=== PATIENT | male | born 1975 | race Hispanic/Latino ===

== ENCOUNTER 2022-10-10 14:57 | Inpatient (IN) | payer OTHER ==
[~2022-10-10] VITALS: Ht 165.1 cm; Wt 78.6 kg
[2022-10-10 17:02] LABS: BASOPHILS # (AUTO) 0.02 K/uL (0.00-0.20); BASOPHILS % (AUTO) 0.3 % (0.0-5.0); EOSINOPHILS # (AUTO) 0.04 K/uL (0.00-0.70); EOSINOPHILS % (AUTO) 0.6 % (0.0-8.0); IMMATURE GRANULOCYTE ABSOLUTE 0.03 K/uL (0-1); LYMPHOCYTES # (AUTO) 2.9 K/uL (1.0-4.8); MEAN CORPUSCULAR HEMOGLOBIN 29.9 pg (27.0-33.0); MEAN CORPUSCULAR HGB CONC 30.5 g/dL (32.0-36.0); MEAN CORPUSCULAR VOLUME 97.9 fL (79-99); MONOCYTES # (AUTO) 0.2 K/uL (0.1-1.0); MONOCYTES % (AUTO) 2.7 % (3.0-13.0); NEUTROPHILS # (AUTO) 3.2 K/uL (1.8-7.7); NEUTROPHILS % (AUTO) 49.9 % (40.0-77.0); NUCLEATED RED BLOOD CELLS 0.3 % (0.0-0.19); PLATELET COUNT (AUTO) 307 K/uL (130-400); RED BLOOD CELL COUNT(AUTO) 1.94 MIL/uL (4.50-6.20); RED CELL DISTRIBUTION WIDTH 19.1 % (11.0-15.5); WHITE BLOOD COUNT (AUTO) 6.4 K/uL (4.8-10.8)
[2022-10-10 17:21] LABS: % IRON SATURATION 30.7 % (30-44)
[2022-10-10 17:41] LABS: ALBUMIN 1.7 g/dL (3.5-5.0); BILIRUBIN,TOTAL 0.2 mg/dL (0.2-1.0); CREATININE 1.3 mg/dL (0.5-1.5); POTASSIUM 3.6 mmol/L (3.5-5.1); TOTAL PROTEIN, SERUM 17.3 g/dL (6.0-8.3)
[2022-10-10] MEDS ORDERED: ONDANSETRON 4MG INJ IV PRN (19:30)
[2022-10-10] MEDS ORDERED: 0.9%NACL 1000ML 1,000 ML IV SCH (19:30)
[2022-10-10] MEDS ORDERED: PANTOPRAZOLE 40 MG/VIAL IVP SCH (21:00)
[2022-10-10 23:00] VITALS: BP 130/83; PULSE 83; RESP 22
[2022-10-10 23:05] VITALS: O2SAT 99
[2022-10-11] VITALS (8 sets, daily range): BP systolic 110–141; BP diastolic 72–83; PULSE 66–76; RESP 18–23; O2SAT 98–99
[2022-10-11 01:14] LABS: HEMATOCRIT 20.8 % (42-54)
[2022-10-11] MEDS ORDERED: ACET-2247 PO (04:40)
[2022-10-11 05:19] LABS: HEMATOCRIT 22.8 % (42-54); MEAN CORPUSCULAR HEMOGLOBIN 29.6 pg (27.0-33.0); MEAN CORPUSCULAR VOLUME 92.3 fL (79-99); RED BLOOD CELL COUNT(AUTO) 2.47 MIL/uL (4.50-6.20); WHITE BLOOD COUNT (AUTO) 4.4 K/uL (4.8-10.8)
[2022-10-11 05:29] LABS: INR 1.15 (0.85-1.15); PROTHROMBIN TIME 13.2 SEC (9.6-11.6)
[2022-10-11 05:31] LABS: PARTIAL THROMBOPLASTIN TIME 24.8 SEC (26.3-35.5)
[2022-10-11 05:52] LABS: ALBUMIN 1.4 g/dL (3.5-5.0); BILIRUBIN,DIRECT 0.2 mg/dL (0.0-0.3); BILIRUBIN,TOTAL 0.6 mg/dL (0.2-1.0); CREATININE 1.2 mg/dL (0.5-1.5); POTASSIUM 3.6 mmol/L (3.5-5.1); TOTAL PROTEIN, SERUM 14.7 g/dL (6.0-8.3)
[2022-10-11] MEDS ORDERED: COMPOUND IV REFRIGERATED 1 EACH IVSOLN MISC PRN (08:30)
[2022-10-11] MEDS ORDERED: LORAZEPAM 1 MG TABLET PO PRN (08:30)
[2022-10-11] MEDS: TAMSULOSIN HCL 0.4 MG CAP.ER.24H PO SCH (09:05)
[2022-10-11] MEDS: M.V.I. 10 ML, FOLIC ACID 1 MG, THIAMINE HCL 100 MG in 0.9%NACL 1000ML IV SCH (09:17)
[2022-10-11] MEDS: PANTOPRAZOLE 40MG INJ 80 MG in 0.9%NACL 100ML 100 ML IVP SCH ×2 (09:18→19:30)
[2022-10-11 12:18] LABS: HEMATOCRIT 22.9 % (42-54)
[2022-10-11] MEDS ORDERED: LACTULOSE 20 GM/30 ML UDCUP PO ONE ×2 (15:30→17:30)
[2022-10-11] MEDS ORDERED: BISACODYL 5 MG TABLET.DR PO SCH (18:00)
[2022-10-11] MEDS ORDERED: PEG 3350/NA SULF,BICARB,CL/KCL 4000 ML SOLN PO ONE (18:15)
[2022-10-11 18:34] LABS: HEMATOCRIT 25.6 % (42-54)
[2022-10-12] VITALS (28 sets, daily range): BP systolic 103–139; BP diastolic 64–90; PULSE 63–97; RESP 14–22; O2SAT 96–98
[2022-10-12 00:53] LABS: HEMATOCRIT 23.5 % (42-54)
[2022-10-12] MEDS ORDERED: BISACODYL 5 MG TABLET.DR PO SCH (02:00)
[2022-10-12 05:23] LABS: EOSINOPHILS # (AUTO) 0.04 K/uL (0.00-0.70); EOSINOPHILS % (AUTO) 0.9 % (0.0-8.0); HEMATOCRIT 22.7 % (42-54); IMMATURE GRANULOCYTE ABSOLUTE 0.01 K/uL (0-1); LYMPHOCYTES # (AUTO) 2.1 K/uL (1.0-4.8); LYMPHOCYTES % (AUTO) 47.2 % (21.0-51.0); MEAN CORPUSCULAR HEMOGLOBIN 30.1 pg (27.0-33.0); MEAN CORPUSCULAR HGB CONC 31.7 g/dL (32.0-36.0); MONOCYTES # (AUTO) 0.2 K/uL (0.1-1.0); MONOCYTES % (AUTO) 4.1 % (3.0-13.0); NEUTROPHILS # (AUTO) 2.1 K/uL (1.8-7.7); NEUTROPHILS % (AUTO) 47.6 % (40.0-77.0); PLATELET COUNT (AUTO) 224 K/uL (130-400); RED BLOOD CELL COUNT(AUTO) 2.39 MIL/uL (4.50-6.20); RED CELL DISTRIBUTION WIDTH 18.1 % (11.0-15.5); WHITE BLOOD COUNT (AUTO) 4.4 K/uL (4.8-10.8)
[2022-10-12 05:58] LABS: ALBUMIN 1.4 g/dL (3.5-5.0); BILIRUBIN,TOTAL 0.4 mg/dL (0.2-1.0); CREATININE 1.2 mg/dL (0.5-1.5); MAGNESIUM 1.6 mg/dL (1.80-2.40); POTASSIUM 3.4 mmol/L (3.5-5.1); TOTAL PROTEIN, SERUM 14.3 g/dL (6.0-8.3)
[2022-10-12] MEDS: PANTOPRAZOLE 40MG INJ 80 MG in 0.9%NACL 100ML 100 ML IVP SCH (06:02)
[2022-10-12] MEDS ORDERED: POTASSIUM CHLORIDE 20MEQ/100ML 100 ML IV PRN (06:30)
[2022-10-12] MEDS ORDERED: MAGNESIUM 2GM PREMIX 50ML 50 ML IV PRN (06:30)
[2022-10-12] MEDS: TAMSULOSIN HCL 0.4 MG CAP.ER.24H PO SCH (09:00)
[2022-10-12] MEDS: M.V.I. 10 ML, FOLIC ACID 1 MG, THIAMINE HCL 100 MG in 0.9%NACL 1000ML IV SCH (10:06)
[2022-10-12] MEDS ORDERED: PROPOFOL 10 MG/ML 20ML VIAL IV ONE ×2 (11:42→12:06)
[2022-10-12] MEDS ORDERED: SIMETHICONE 40 MG/0.6 ML ML ONE (12:15)
[2022-10-12 14:17] LABS: HEMATOCRIT 23.6 % (42-54)
[2022-10-12 15:50] LABS: THYROID STIMULATING HORMONE 1.79 uIU/mL (0.36-3.74)
[2022-10-13 08:00] VITALS: BP 105/79; PULSE 64; RESP 17
[2022-10-13] MEDS: M.V.I. 10 ML, FOLIC ACID 1 MG, THIAMINE HCL 100 MG in 0.9%NACL 1000ML IV SCH (10:00)
[2022-10-13 10:29] LABS: ALBUMIN 1.4 g/dL (3.5-5.0); BILIRUBIN,TOTAL 0.4 mg/dL (0.2-1.0); CREATININE 1.2 mg/dL (0.5-1.5); MAGNESIUM 1.8 mg/dL (1.80-2.40); POTASSIUM 3.3 mmol/L (3.5-5.1); TOTAL PROTEIN, SERUM 13.7 g/dL (6.0-8.3)
[2022-10-13] MEDS: PANTOPRAZOLE 40MG INJ 80 MG in 0.9%NACL 100ML 100 ML IVP SCH ×3 (10:47→12:00)
[2022-10-13] MEDS: TAMSULOSIN HCL 0.4 MG CAP.ER.24H PO SCH (10:48)
[2022-10-13] MEDS ORDERED: PANT40TA55 PO (11:04)
[2022-10-13] MEDS ORDERED: TAMS-1 PO (11:04)
[2022-10-13] MEDS ORDERED: HYDR25SU38 RC (11:04)
[2022-10-13 12:00] VITALS: BP 126/77; PULSE 82; RESP 17
[2022-10-13 14:37] LABS: BASOPHILS # (AUTO) 0.01 K/uL (0.00-0.20); BASOPHILS % (AUTO) 0.2 % (0.0-5.0); EOSINOPHILS # (AUTO) 0.04 K/uL (0.00-0.70); EOSINOPHILS % (AUTO) 0.9 % (0.0-8.0); HEMATOCRIT 21.9 % (42-54); IMMATURE GRANULOCYTE ABSOLUTE 0.01 K/uL (0-1); LYMPHOCYTES # (AUTO) 1.8 K/uL (1.0-4.8); LYMPHOCYTES % (AUTO) 42.6 % (21.0-51.0); MEAN CORPUSCULAR HEMOGLOBIN 30.7 pg (27.0-33.0); MEAN CORPUSCULAR VOLUME 96.1 fL (79-99); MONOCYTES # (AUTO) 0.2 K/uL (0.1-1.0); MONOCYTES % (AUTO) 4.2 % (3.0-13.0); NEUTROPHILS # (AUTO) 2.2 K/uL (1.8-7.7); NEUTROPHILS % (AUTO) 51.9 % (40.0-77.0); PLATELET COUNT (AUTO) 193 K/uL (130-400); RED BLOOD CELL COUNT(AUTO) 2.28 MIL/uL (4.50-6.20); RED CELL DISTRIBUTION WIDTH 17.7 % (11.0-15.5); WHITE BLOOD COUNT (AUTO) 4.3 K/uL (4.8-10.8)
[2022-10-14 16:11] LABS: FREE KAPPA LIGHT CHAINS,S 921.4 mg/L (3.3-19.4)
== END 2022-10-13 13:20 | disposition home or self-care (01) | DRG 377 ==
LOC: EDH 14:57 → EDHIP 19:05 → 3BH 22:45
PROVIDERS: ADMIT Hospitalist; ATTEND Hospitalist
PROC: 30233N1 Transfusion of Nonautologous Red Blood Cells into Peripheral Vein, Percutaneous Approach (ICD-10-PCS; 2022-10-10)
PROC: 0DB98ZX Excision of Duodenum, Via Natural or Artificial Opening Endoscopic, Diagnostic (ICD-10-PCS; principal; 2022-10-12)
PROC: 0DB68ZX Excision of Stomach, Via Natural or Artificial Opening Endoscopic, Diagnostic (ICD-10-PCS; 2022-10-12)
PROC: 0DB58ZX Excision of Esophagus, Via Natural or Artificial Opening Endoscopic, Diagnostic (ICD-10-PCS; 2022-10-12)
PROC: 0DJD8ZZ Inspection of Lower Intestinal Tract, Via Natural or Artificial Opening Endoscopic (ICD-10-PCS; 2022-10-12)
DX: K29.71 Gastritis, unspecified, with bleeding (principal); E43 Unspecified severe protein-calorie malnutrition; D62 Acute posthemorrhagic anemia; N13.2 Hydronephrosis with renal and ureteral calculous obstruction; C18.9 Malignant neoplasm of colon, unspecified; K63.3 Ulcer of intestine; K76.0 Fatty (change of) liver, not elsewhere classified; F17.210 Nicotine dependence, cigarettes, uncomplicated; G89.29 Other chronic pain; I10 Essential (primary) hypertension; K64.8 Other hemorrhoids; K21.00 Gastro-esophageal reflux disease with esophagitis, without bleeding; K64.9 Unspecified hemorrhoids; K59.00 Constipation, unspecified; E83.52 Hypercalcemia; Z82.49 Family history of ischemic heart disease and other diseases of the circulatory system; Z87.442 Personal history of urinary calculi
CPT/HCPCS: 36415; 36430; 43239; 45378; 74176; 76700; 80048; 80053; 80076; 82270; 82607; 82728; 82948; 83010; 83540; 83550; 83615; 83735; 83883; 84443; 85007; 85014; 85018; 85025; 85027; 85610; 85730; 86038; 86334; 86701; 86850; 86900; 86901; 86923; 87390; A4606; C9113; G0378; J2704; J3411; J3475; J3490; J7030; P9016; A4215; A4216; A4222; A4223; A4620; A4657; A7002

== ENCOUNTER 2023-01-05 20:10 | Observation (INO) | payer OTHER ==
[~2023-01-05] VITALS: Ht 165.1 cm; Wt 77.9 kg
[~2023-01-05 20:10] MED LIST: ACET-2247 PO; HYDR25SU38 RC; PANT40TA55 PO; TAMS-1 PO
[2023-01-05 21:00] VITALS: BP 153/87; PULSE 80; RESP 18
[2023-01-05] MEDS ORDERED: ACETAMINOPHEN 325 MG TAB PO PRN (21:30)
[2023-01-05] MEDS ORDERED: ACYC400T20 PO (21:49)
[2023-01-05] MEDS ORDERED: FENT1PAT60 TD (21:49)
[2023-01-05 23:01] LABS: HEMATOCRIT 32.9 % (42-54); MEAN CORPUSCULAR HEMOGLOBIN 31.9 pg (27.0-33.0); MEAN CORPUSCULAR HGB CONC 32.5 g/dL (32.0-36.0); MEAN CORPUSCULAR VOLUME 98.2 fL (79-99); PLATELET COUNT (AUTO) 271 K/uL (130-400); RED BLOOD CELL COUNT(AUTO) 3.35 MIL/uL (4.50-6.20); RED CELL DISTRIBUTION WIDTH 19.3 % (11.0-15.5); WHITE BLOOD COUNT (AUTO) 5.5 K/uL (4.8-10.8)
[2023-01-05 23:10] LABS: CREATININE 0.8 mg/dL (0.5-1.5)
[2023-01-05 23:13] LABS: INR 1.01 (0.85-1.15); PROTHROMBIN TIME 11.7 SEC (9.6-11.6)
[2023-01-05 23:14] LABS: PARTIAL THROMBOPLASTIN TIME 26.2 SEC (26.3-35.5)
[2023-01-05 23:59] VITALS: BP 139/88; PULSE 70; RESP 16
[2023-01-06] VITALS (24 sets, daily range): BP systolic 106–140; BP diastolic 52–88; PULSE 64–88; RESP 10–18; O2SAT 94
[2023-01-06] MEDS ORDERED: ACYCLOVIR 200 MG CAPSULE PO SCH (09:00)
[2023-01-06] MEDS ORDERED: CEFAZOLIN SODIUM 2 GM VIAL ONE (11:55)
[2023-01-06] MEDS ORDERED: LACTATED RINGERS 1000ML 1,000 ML IV ONE (11:55)
[2023-01-06] MEDS ORDERED: BUPIVACAINE/PF 0.5% 30ML VIAL ONE (12:19)
[2023-01-06] MEDS ORDERED: FENTANYL 25 MCG/HR PATCH TD SCH (13:00)
[2023-01-06] MEDS ORDERED: SUCCINYLCHOLINE 200MG/10ML SYR ONE (13:54)
[2023-01-06] MEDS ORDERED: LIDOCAINE PF 100MG/5ML (2%) SYRINGE 5ML ONE (13:54)
[2023-01-06] MEDS ORDERED: GLYCOPYRROLATE 1 MG/5 ML SYRINGE ONE (13:55)
[2023-01-06] MEDS ORDERED: PROPOFOL 10 MG/ML 20ML VIAL IV ONE (13:55)
[2023-01-06] MEDS ORDERED: FENTANYL CITRATE PF 50 MCG/1 ML 2ML VIAL ONE ×2 (13:55→15:09)
[2023-01-06] MEDS ORDERED: ROCURONIUM 10MG/1ML SYR 10 MG/ML ML ONE (13:55)
[2023-01-06] MEDS ORDERED: MIDAZOLAM HCL 1 MG/ML 2ML VIAL ONE (13:57)
[2023-01-06] MEDS ORDERED: FAMOTIDINE 20MG VIAL IV ONE (13:59)
[2023-01-06] MEDS ORDERED: FENTANYL CITRATE PF 50 MCG/1 ML 5ML AMP IV ONE (14:38)
[2023-01-06] MEDS ORDERED: KETOROLAC 30MG VIAL (30MG/ML) ONE (14:45)
[2023-01-06] MEDS ORDERED: HEPARIN 5,000 UNIT VIAL IRRIG ONE (15:00)
[2023-01-06] MEDS ORDERED: TRAMADOL HCL 50 MG TABLET PO PRN (15:30)
== END 2023-01-06 20:30 | disposition home or self-care (01) ==
LOC: EDH 20:10 → 4BH 20:11
PROVIDERS: ADMIT Internal Medicine Medical Oncology; ATTEND Internal Medicine Medical Oncology
DX: C90.00 Multiple myeloma not having achieved remission (principal); C79.51 Secondary malignant neoplasm of bone; M54.50 Low back pain, unspecified; G89.29 Other chronic pain; Z79.899 Other long term (current) drug therapy
CPT/HCPCS: 80048; 85027; 85610; 85730; 36415; 36561; 71045; G0378 ×21; A4663; A4606; C1788; J7120; J3490 ×2; J3010 ×3; J0330; J2001; J2250; J2704; J1885; J1644 ×2; J0665; J0690; G0168; A4215; A4223; A4222; A4221; A4600; 77002